=== PATIENT | female | born 1955 | race Caucasian/White ===

== ENCOUNTER 2022-08-09 03:33 | Inpatient (IN) | payer MEDICARE, OTHER ==
[~2022-08-09] VITALS: Ht 180.3 cm; Wt 77.1 kg
[2022-08-09] MEDS ORDERED: DILTIAZEM HCL 5MG/ML 5ML VIAL IV ONE (04:00)
[2022-08-09] MEDS ORDERED: DILTIAZEM HCL 125 MG in DEXT 5% WATER 100 ML IV ONE (04:00)
[2022-08-09 04:14] LABS: BASOPHILS % 0.4 % (0.0-2.0); EOSINOPHILS % 0.8 % (0.0-5.0); HEMOGLOBIN. 13.5 g/dL (12.0-16.0); LYMPHOCYTES % 38.2 % (20.0-50.0); MEAN CORPUSCULAR HEMOGLOBIN 32.1 pg (28.0-32.0); MEAN CORPUSCULAR VOLUME 88.1 fL (81.0-99.0); MONOCYTES % 7.3 % (2.0-8.0); NEUTROPHILS % 53.3 % (40.0-76.0); PLATELET 188 x1000/uL (130-400); RED CELL DISTRIBUTION WIDTH 13.9 % (11.6-14.6)
[2022-08-09] MEDS ORDERED: ASPIRIN 81MG TABLET PO ONE (04:15)
[2022-08-09 04:21] LABS: CHLORIDE 103 mEq/L (98-107)
[2022-08-09] MEDS ORDERED: DILTIAZEM 125MG/125ML PMX 125 ML IV NR (04:30)
[2022-08-09] MEDS ORDERED: DILTIAZEM HCL 5MG/ML 5ML VIAL IV NR (04:30)
[2022-08-09] MEDS ORDERED: SODIUM CHLORIDE 0.9% 1,000 ML IV ONE (04:45)
[2022-08-09] MEDS ORDERED: MAGNESIUM 2 G PREMIX 50 ML IV ONE (05:15)
[2022-08-09] MEDS: KCL 10MEQ/50ML PREMIX 100 ML IV SCH ×4 (05:30→11:30)
[2022-08-09] MEDS ORDERED: ACETAMINOPHEN 325MG TABLET PO PRN (09:45)
[2022-08-09] MEDS ORDERED: ONDANSETRON HCL 4MG/2ML INJ IV PRN (09:45)
[2022-08-09] MEDS: TRAMADOL 50MG TABLET PO PRN ×2 (12:33→20:54)
[2022-08-09 15:00] VITALS: BP 130/111
[2022-08-09] MEDS ORDERED: METO25TA6 PO (15:29)
[2022-08-09] MEDS ORDERED: PANT40TA51 PO (15:29)
[2022-08-09] MEDS ORDERED: RIVA20TA MT (15:29)
[2022-08-09] MEDS ORDERED: RIVAROXABAN 20 MG TABLET PO SCH (17:00)
[2022-08-09] MEDS ORDERED: METOPROLOL TARTRATE 50MG TABLET PO SCH (17:00)
[2022-08-09 17:23] VITALS: BP 131/59
[2022-08-09] MEDS ORDERED: ZOLPIDEM TARTRATE 5MG TABLET PO PRN (17:45)
[2022-08-09] MEDS ORDERED: NALOXONE HCL 0.4MG/ML VIAL IV PRN (18:45)
[2022-08-09 20:00] VITALS: BP 118/58
[2022-08-10] VITALS: BP 107/54
[2022-08-10 04:00] VITALS: BP 106/54
[2022-08-10 04:25] LABS: CLARITY URINE CLEAR (CLEAR); COLOR URINE YELLOW (YELLOW); KETONES URINE 2+ (NEGATIVE); LEUKOCYTE ESTERASE URINE NEGATIVE (NEGATIVE); NITRITE URINE NEGATIVE (NEGATIVE); OCCULT BLOOD URINE NEGATIVE (NEGATIVE); PH URINE 5.5 (4.5-8.0); PROTEIN URINE NEGATIVE (NEGATIVE); SPECIFIC GRAVITY URINE 1.023 (1.005-1.030)
[2022-08-10 06:49] LABS: BASOPHILS % 0.5 % (0.0-2.0); EOSINOPHILS % 1.4 % (0.0-5.0); HEMATOCRIT. 34.2 % (36.0-48.0); HEMOGLOBIN. 11.8 g/dL (12.0-16.0); LYMPHOCYTES % 38.1 % (20.0-50.0); MEAN CORPUSCULAR HEMOGLOBIN 31.6 pg (28.0-32.0); MEAN CORPUSCULAR VOLUME 91.4 fL (81.0-99.0); MEAN PLATELET VOLUME 7.2 fl (7.4-10.4); MONOCYTES % 6.7 % (2.0-8.0); NEUTROPHILS % 53.3 % (40.0-76.0); PLATELET 130 x1000/uL (130-400); RED BLOOD CELL COUNT 3.74 mill/uL (4.2-5.4); RED CELL DISTRIBUTION WIDTH 14.4 % (11.6-14.6)
[2022-08-10 07:17] LABS: CHLORIDE 110 mEq/L (98-107)
[2022-08-10 08:00] VITALS: BP 125/56
[2022-08-10] MEDS ORDERED: MAGNESIUM OXIDE 400MG TABLET PO SCH (09:00)
[2022-08-10] MEDS ORDERED: METOPROLOL TARTRATE 50MG TABLET PO SCH (09:00)
[2022-08-10] MEDS ORDERED: MAGN400T55 MT (10:08)
[2022-08-10] MEDS ORDERED: METO25TA6 PO (10:08)
[2022-08-10 12:00] VITALS: BP 142/71
[2022-08-10 12:01] VITALS: BP 142/71
== END 2022-08-10 12:40 | disposition home or self-care (01) | DRG 309 ==
LOC: ER 03:33 → EDBD 03:33 → ENRESERV 12:20 → 7WST 14:07
PROVIDERS: ADMIT Internal Medicine; ATTEND Internal Medicine
DX: I48.0 Paroxysmal atrial fibrillation (principal); E87.20 Acidosis, unspecified; I47.1 Supraventricular tachycardia; I10 Essential (primary) hypertension; Z20.822 Contact with and (suspected) exposure to COVID-19; E87.6 Hypokalemia; E83.42 Hypomagnesemia; Z79.01 Long term (current) use of anticoagulants
CPT/HCPCS: 36415; 71045; 80048; 80053; 81003; 83605; 83735; 83880; 84443; 84484; 85025; 87426; 93005; 93306; 99285; C9803; J2405; J3475; J3480; J3490; J7030; J7060